=== PATIENT | female | born 1945 | race Caucasian/White ===

== ENCOUNTER 2022-12-25 11:20 | Emergency (ER) | payer MEDICARE, MEDICAID ==
[~2022-12-25] VITALS: Ht 160 cm; Wt 57.7 kg
[~2022-12-25 11:20] MED LIST: ATOR40TA72 PO; BUDE10.22 IH; CALC600T22 PO; CHOL100046 PO; GABA-530 PO; HYDR-3972 PO
[2022-12-25 11:22] VITALS: TEMP 98
[2022-12-25] MEDS ORDERED: normal saline 1000ML IV soln IV ONE (11:45)
[2022-12-25 11:50] LABS: BASOPHILS % (AUTO) 0.7 % (0-1); EOSINOPHILS % (AUTO) 1.1 % (0-6); HEMATOCRIT 31.8 % (35.0-45.0); HEMOGLOBIN 10.4 g/dl (12.0-16.0); LYMPHOCYTES # (AUTO) 0.7 X10'3 (1.1-4.8); LYMPHOCYTES % (AUTO) 18.3 % (21-51); MEAN CORPUSCULAR HGB CONC 32.6 g/dL (33.0-36.5); MEAN CORPUSCULAR VOLUME 91.8 FL (78-98); MEAN PLATELET VOLUME 7.9 FL (7.4-10.4); MONOCYTES # (AUTO) 0.4 X10'3 (0-0.9); MONOCYTES % (AUTO) 10.8 % (2-12); NEUTROPHILS # (AUTO) 2.7 X10'3 (1.8-7.7); NEUTROPHILS % (AUTO) 69.1 % (42-75); PLATELET COUNT 302 X10'3 (140-440); RED BLOOD COUNT 3.46 X10'6 (4.20-5.60); WHITE BLOOD COUNT 3.9 X10'3 (4.5-11.0)
[2022-12-25 12:02] LABS: ALANINE AMINOTRANSFERASE 58 U/L (12-78); ALBUMIN 3.4 G/DL (3.4-5.0); ALBUMIN/GLOBULIN RATIO 0.9 (1.1-1.5); ALKALINE PHOSPHATASE 164 IU/L (46-116); ANION GAP 9 (8-16); ASPARTATE AMINO TRANSFERASE 82 U/L (10-37); BILIRUBIN,TOTAL 0.6 MG/DL (0.1-1.0); BLOOD UREA NITROGEN 21 MG/DL (7-18); BUN/CREATININE RATIO 20.8 (10.0-20.0); CALCIUM 8.9 MG/DL (8.5-10.1); CHLORIDE 106 MMOL/L (99-107); CREATININE 1.01 MG/DL (0.40-0.90); GLUCOSE 109 MG/DL (70-104); LIPASE < 50 U/L (73-393); POTASSIUM 3.6 MMOL/L (3.5-5.1); SODIUM 140 MMOL/L (135-145); TOTAL CARBON DIOXIDE 24.9 MMOL/L (24-32); TOTAL PROTEIN 7.3 G/DL (6.4-8.2); eGFR 53 ML/MIN
[2022-12-25 12:11] LABS: CLARITY,URINE CLOUDY (Clear); COLOR,URINE YELLOW (Yellow); GLUCOSE, URINE NEGATIVE (Neg); KETONES,URINE NEGATIVE (Neg); LEUKOCYTE ESTERASE ,URINE TRACE (Neg); NITRITES, URINE POSITIVE (Neg); OCCULT BLOOD,URINE TRACE-INTACT (Neg); PROTEIN,URINE 30 mg/dl (Neg)
[2022-12-25 12:18] LABS: UA COLLECTION TYPE CLN CATCH MIDSTREAM
[2022-12-25 12:19] LABS: MUCUS STRANDS MANY /LPF (Neg); SQUAMOUS EPITHELIAL CELL,UR MANY /LPF (FEW)
[2022-12-25 12:21] LABS: BACTERIA,URINE 2+ /HPF (Neg); RBC,URINE 0-2 /HPF (0-2)
[2022-12-25 14:04] VITALS: BP 108/50; PULSE 79; RESP 16; O2SAT 100
[2022-12-25 14:27] LABS: OCCULT BLOOD STOOL POSITIVE (Neg)
== END 2022-12-25 15:34 | disposition home or self-care (01) ==
LOC: ER 11:21
DX: R11.2 Nausea with vomiting, unspecified (principal); R19.7 Diarrhea, unspecified; R10.84 Generalized abdominal pain; I11.0 Hypertensive heart disease with heart failure; E78.00 Pure hypercholesterolemia, unspecified; J44.9 Chronic obstructive pulmonary disease, unspecified; Z88.8 Allergy status to other drugs, medicaments and biological substances; Z79.899 Other long term (current) drug therapy; Z88.5 Allergy status to narcotic agent
CPT/HCPCS: 36415; 80053; 81001; 82272; 83605; 83690; 84145; 85025; 87040; 99285; J7030; 99283

== ENCOUNTER 2023-06-22 16:37 | Inpatient (IN) | payer MEDICARE, MEDICAID ==
[~2023-06-22] VITALS: Ht 167.6 cm; Wt 58.0 kg
[~2023-06-22 16:37] MED LIST changes: +PANT-47 PO
[2023-06-22] MEDS ORDERED: acetaminophen 325mg tablet PO STA (17:47)
[2023-06-22] MEDS ORDERED: normal saline 1000ML IV soln IVB ONE (17:50)
[2023-06-22] MEDS ORDERED: albumin (human) 25% 100ml IV 100 ML IV ONE (17:50)
[2023-06-22] MEDS ORDERED: pantoprazole 40 MG vial IV ONE (17:50)
[2023-06-22] MEDS ORDERED: piperacillin/tazo 3.375gm/50ml 50 ML IV ONE (17:50)
[2023-06-22] MEDS ORDERED: ipratropium 0.5 MG/2.5ML nebule IH ONE (17:50)
[2023-06-22] MEDS ORDERED: albuterol 2.5 MG/3 ML nebule CONTNEB PRN (17:50)
[2023-06-22 17:51] LABS: BASOPHILS # (AUTO) 0.1 X10'3 (0-0.2); BASOPHILS % (AUTO) 0.8 % (0-1); EOSINOPHILS # (AUTO) 0.1 X10'3 (0-0.9); EOSINOPHILS % (AUTO) 1.7 % (0-6); HEMATOCRIT 39.4 % (35.0-45.0); HEMOGLOBIN 13.1 g/dl (12.0-16.0); LYMPHOCYTES # (AUTO) 1.3 X10'3 (1.1-4.8); LYMPHOCYTES % (AUTO) 18.1 % (21-51); MEAN CORPUSCULAR HEMOGLOBIN 30.6 PG (27.0-31.0); MEAN CORPUSCULAR HGB CONC 33.4 g/dL (33.0-36.5); MEAN CORPUSCULAR VOLUME 91.6 FL (78-98); MEAN PLATELET VOLUME 8.8 FL (7.4-10.4); MONOCYTES # (AUTO) 0.7 X10'3 (0-0.9); MONOCYTES % (AUTO) 9.2 % (2-12); NEUTROPHILS # (AUTO) 5.2 X10'3 (1.8-7.7); NEUTROPHILS % (AUTO) 70.2 % (42-75); PLATELET COUNT 318 X10'3 (140-440); RED CELL DISTRIBUTION WIDTH 16.5 % (11.5-14.5); WHITE BLOOD COUNT 7.4 X10'3 (4.5-11.0)
[2023-06-22 18:01] LABS: APTT 28 SECONDS (22-32); PROTHROMBIN TIME 10.7 SECONDS (9.0-12.0)
[2023-06-22 18:03] LABS: ALANINE AMINOTRANSFERASE 18 U/L (12-78); ALBUMIN 3.7 G/DL (3.4-5.0); ALBUMIN/GLOBULIN RATIO 0.9 (1.1-1.5); ALKALINE PHOSPHATASE 129 IU/L (46-116); ANION GAP 8 (8-16); ASPARTATE AMINO TRANSFERASE 16 U/L (10-37); BILIRUBIN,TOTAL 0.7 MG/DL (0.1-1.0); BLOOD UREA NITROGEN 34 MG/DL (7-18); BUN/CREATININE RATIO 14.2 (10.0-20.0); CALCIUM 9.6 MG/DL (8.5-10.1); CHLORIDE 102 MMOL/L (99-107); GLUCOSE 124 MG/DL (70-104); POTASSIUM 4.3 MMOL/L (3.5-5.1); SODIUM 139 MMOL/L (135-145); TOTAL CARBON DIOXIDE 28.9 MMOL/L (24-32); TOTAL PROTEIN 7.7 G/DL (6.4-8.2); eCRCL 17 ML/MIN; eGFR 19 ML/MIN
[2023-06-22 18:10] LABS: MAGNESIUM 2.4 MG/DL (1.5-2.4); PRO BRAIN NATRIURETIC PEPTIDE 466 PG/ML (0-450)
[2023-06-22 18:29] LABS: C-REACTIVE PROTEIN 0.58 MG/DL (0.0-0.5)
[2023-06-22 19:31] VITALS: PULSE 70; RESP 20; O2SAT 95
[2023-06-22 19:32] LABS: ABG HCO3 23.8 mmol/L (22.0-26.0); ABG OXYGEN SATURATION 94.6 % (94-97); ABG PCO2 (T) 39.4 mmHg (32.0-45.0); ABG PH (T) 7.397 (7.350-7.450); ABG PO2 (T) 70.6 mmHg (75.0-100.0); ALLEN'S TEST POSITIVE; FCOHb 0.6 % (0.0-3.9); FHHb 5.4 % (0.0-5.0); FLOW 2 L/min; FMetHb 0.2 % (0.0-1.5); FO2Hb 93.8 % (94-97); MODE NASAL CANNULA; PATIENT TEMPERATURE 36.6; TOTAL HEMOGLOBIN 12.1 G/dl (12.0-16.0)
[2023-06-22] MEDS ORDERED: DOBUTamine-DoBUTrex 500mg/D5W 250 ML IV SCH (19:35)
[2023-06-22] MEDS ORDERED: normal saline 1000ML IV soln IV ONE (19:35)
[2023-06-22] MEDS ORDERED: methylPREDNISolone sod succ 125mg/2ml vial IV ONE (19:40)
[2023-06-22] MEDS ORDERED: albumin (human) 25% 100 ML IV solution IV ONE (19:40)
[2023-06-22] MEDS ORDERED: VANCOmycin 1250MG/NS 250ml Bag 250 ML IV ONE (19:45)
[2023-06-22 20:38] VITALS: PULSE 67; RESP 17; O2SAT 100
[2023-06-22] MEDS ORDERED: DOPamine 400mg/D5W 250ml 250 ML IV SCH ×2 (20:40→20:41)
[2023-06-22 21:44] LABS: BILIRUBIN,URINE NEGATIVE (Neg); CLARITY,URINE CLOUDY (Clear); COLOR,URINE YELLOW (Yellow); GLUCOSE, URINE >=1000 mg/dl (Neg); KETONES,URINE TRACE mg/dl (Neg); LEUKOCYTE ESTERASE ,URINE TRACE (Neg); NITRITES, URINE NEGATIVE (Neg); OCCULT BLOOD,URINE NEGATIVE (Neg); PH,URINE 5.5 (4.8-8.0); PROTEIN,URINE TRACE mg/dl (Neg); UROBILINOGEN,URINE 0.2 E.U/dL (0.2-1.0)
[2023-06-22 21:51] LABS: UA COLLECTION TYPE URINAL
[2023-06-22 21:52] LABS: RENAL CELLS, URINE FEW /HPF; SQUAMOUS EPITHELIAL CELL,UR MANY /LPF (FEW); TRANSITIONAL EPI CELLS,URINE FEW /HPF
[2023-06-22 21:53] LABS: BACTERIA,URINE 3+ /HPF (Neg); RBC,URINE NONE SEEN /HPF (0-2)
[2023-06-23] VITALS (11 sets, daily range): BP systolic 115–169; BP diastolic 54–74; PULSE 92–100; RESP 11–22; TEMP 97.4–98.9; O2SAT 93–96
[2023-06-23] MEDS ORDERED: mag hydrox/Alum hydrox/simeth 30ml oral suspension PO PRN (05:20)
[2023-06-23] MEDS ORDERED: acetaminophen 325mg tablet PO PRN ×2 (05:20)
[2023-06-23] MEDS ORDERED: ondansetron/PF 4mg/2ml inj IV PRN (05:20)
[2023-06-23] MEDS ORDERED: magnesium hydroxide 30ml (MOM) UD suspension PO PRN (05:20)
[2023-06-23] MEDS ORDERED: morphine 2 MG/ML inj. syringe IV PRN ×2 (05:20)
[2023-06-23] MEDS: normal saline 1000ml 1,000 ML IV SCH ×2 (07:32→15:20)
[2023-06-23] MEDS: docusate sod 100mg capsule PO SCH ×2 (07:33→20:04)
[2023-06-23] MEDS: heparin, porcine 5000 units/ml vial SQ SCH ×2 (07:33→20:12)
[2023-06-23] MEDS ORDERED: DAPA10TA PO (10:58)
[2023-06-23] MEDS ORDERED: SPIR25TA PO (11:02)
[2023-06-23] MEDS ORDERED: CARV25TA PO (11:02)
[2023-06-23] MEDS ORDERED: CALC625T PO (11:02)
[2023-06-23] MEDS ORDERED: SACU1TAB PO (11:02)
[2023-06-23] MEDS ORDERED: FERR-116 PO (11:02)
[2023-06-23] MEDS ORDERED: magnesium 2GM in 50ml NS 50 ML IV PRN (13:40)
[2023-06-23] MEDS ORDERED: magnesium 4gm in 100ml NS 100 ML IV PRN (13:40)
[2023-06-23] MEDS ORDERED: magnesium Cl slow-release 64mg tablet PO PRN (13:40)
[2023-06-23] MEDS ORDERED: potassium Cl 20 mEq SR tablet PO PRN ×2 (13:40)
[2023-06-23] MEDS ORDERED: potassium Cl 40MEQ/1/2NS 520ml 520 ML IV PRN (13:40)
[2023-06-23] MEDS ORDERED: PERFLUTREN PROTEIN-A MICROSPHR (Optison) 0.22 MG/ML 3ML VIAL IV ONE (13:40)
[2023-06-23] MEDS: piperacillin/tazo 3.375gm/50ml 50 ML IV SCH ×2 (14:09→16:00)
[2023-06-23] MEDS ORDERED: RIVA10TA PO (15:07)
[2023-06-23] MEDS ORDERED: methylPREDNISolone sod succ 125mg/2ml vial IV ONE (15:20)
[2023-06-23] MEDS: azithromycin 250mg tablet PO SCH (15:45)
[2023-06-23] MEDS: rivaroxaban 10mg tablet PO SCH (17:31)
[2023-06-23] MEDS: spironolactone 25 MG tablet PO SCH (17:31)
[2023-06-23] MEDS: K and/or MAG REPLACEMENT MC SCH (19:09)
[2023-06-23] MEDS: Budesonide/Formoterol Fumarate (Symbicort 80-4.5 Mcg Inhaler) IH SCH (20:00)
[2023-06-23] MEDS: gabapentin 100mg capsule PO SCH (20:03)
[2023-06-23] MEDS: carVEDilol 12.5mg tablet PO SCH (20:04)
[2023-06-23] MEDS: ipratropium/albuterol 3ml nebule NEB SCH ×2 (20:05→23:57)
[2023-06-23] MEDS: calcium carbonate 500mg tablet PO SCH (20:07)
[2023-06-23] MEDS: sacubitril/valsartan 24mg-26mg tablet PO SCH (20:12)
[2023-06-23] MEDS ORDERED: LORazepam 2 mg/ml vial IV ONE (22:55)
[2023-06-24] VITALS (15 sets, daily range): BP systolic 111–151; BP diastolic 58–71; PULSE 71–97; RESP 17–27; TEMP 97.5–98.2; O2SAT 91–98
[2023-06-24] MEDS: normal saline 1000ml 1,000 ML IV SCH ×2 (01:20→11:28)
[2023-06-24] MEDS ORDERED: LORazepam 2 mg/ml vial IV ONE (01:55)
[2023-06-24] MEDS: ipratropium/albuterol 3ml nebule NEB SCH ×6 (04:06→23:27)
[2023-06-24] MEDS: DAPAGLIFLOZIN 10MG TABLET PO SCH (08:00)
[2023-06-24] MEDS: Budesonide/Formoterol Fumarate (Symbicort 80-4.5 Mcg Inhaler) IH SCH ×2 (08:00→20:59)
[2023-06-24] MEDS: K and/or MAG REPLACEMENT MC SCH ×2 (08:00→20:00)
[2023-06-24 08:53] LABS: BASOPHILS % (AUTO) 0.1 % (0-1); EOSINOPHILS % (AUTO) 0 % (0-6); HEMATOCRIT 34.8 % (35.0-45.0); HEMOGLOBIN 11.4 g/dl (12.0-16.0); LYMPHOCYTES # (AUTO) 0.6 X10'3 (1.1-4.8); LYMPHOCYTES % (AUTO) 5.2 % (21-51); MEAN CORPUSCULAR HEMOGLOBIN 30.3 PG (27.0-31.0); MEAN CORPUSCULAR HGB CONC 32.7 g/dL (33.0-36.5); MEAN CORPUSCULAR VOLUME 92.8 FL (78-98); MEAN PLATELET VOLUME 8.9 FL (7.4-10.4); MONOCYTES # (AUTO) 0.4 X10'3 (0-0.9); MONOCYTES % (AUTO) 3.3 % (2-12); NEUTROPHILS # (AUTO) 10.9 X10'3 (1.8-7.7); NEUTROPHILS % (AUTO) 91.4 % (42-75); PLATELET COUNT 287 X10'3 (140-440); RED BLOOD COUNT 3.75 X10'6 (4.20-5.60); RED CELL DISTRIBUTION WIDTH 16.6 % (11.5-14.5); WHITE BLOOD COUNT 11.9 X10'3 (4.5-11.0)
[2023-06-24 09:19] LABS: ALBUMIN 3.6 G/DL (3.4-5.0); ANION GAP 15 (8-16); BLOOD UREA NITROGEN 27 MG/DL (7-18); BUN/CREATININE RATIO 28.1 (10.0-20.0); CALCIUM 9.7 MG/DL (8.5-10.1); CHLORIDE 108 MMOL/L (99-107); CREATININE 0.96 MG/DL (0.40-0.90); GLUCOSE 127 MG/DL (70-104); MAGNESIUM 2.1 MG/DL (1.5-2.4); PHOSPHORUS 2.1 MG/DL (2.3-4.5); POTASSIUM 3.8 MMOL/L (3.5-5.1); SODIUM 143 MMOL/L (135-145); TOTAL CARBON DIOXIDE 20.3 MMOL/L (24-32); eCRCL 43 ML/MIN; eGFR 56 ML/MIN
[2023-06-24] MEDS ORDERED: haloperidol lactate 5mg/ml inj IM ONE (09:50)
[2023-06-24] MEDS: piperacillin/tazo 3.375gm/50ml 50 ML IV SCH ×3 (11:06→16:14)
[2023-06-24] MEDS: gabapentin 100mg capsule PO SCH ×2 (11:10→20:58)
[2023-06-24] MEDS: carVEDilol 12.5mg tablet PO SCH ×2 (11:11→20:59)
[2023-06-24] MEDS: azithromycin 250mg tablet PO SCH (11:12)
[2023-06-24] MEDS: pantoprazole 40mg Tablet.DR PO SCH (11:13)
[2023-06-24] MEDS: atorvastatin 20mg tablet PO SCH (11:14)
[2023-06-24] MEDS: ferrous sulfate 325mg tablet PO SCH (11:14)
[2023-06-24] MEDS: calcium carbonate 500mg tablet PO SCH ×2 (11:14→20:59)
[2023-06-24] MEDS: docusate sod 100mg capsule PO SCH ×2 (11:16→20:58)
[2023-06-24] MEDS: methylPREDNISolone sod succ 125mg/2ml vial IV SCH ×2 (11:17)
[2023-06-24] MEDS: heparin, porcine 5000 units/ml vial SQ SCH (11:18)
[2023-06-24] MEDS: spironolactone 25 MG tablet PO SCH (11:26)
[2023-06-24] MEDS: sacubitril/valsartan 24mg-26mg tablet PO SCH ×2 (11:27→20:58)
[2023-06-24] MEDS: rivaroxaban 10mg tablet PO SCH (11:27)
[2023-06-24] MEDS ORDERED: methylPREDNISolone sod succ 125mg/2ml vial IV SCH (20:00)
[2023-06-25] VITALS (13 sets, daily range): BP systolic 127–154; BP diastolic 63–88; PULSE 66–90; RESP 16–21; TEMP 97.1–98.7; O2SAT 93–97
[2023-06-25] MEDS: piperacillin/tazo 3.375gm/50ml 50 ML IV SCH ×3 (00:56→16:00)
[2023-06-25] MEDS: ipratropium/albuterol 3ml nebule NEB SCH ×6 (02:55→23:17)
[2023-06-25] MEDS: normal saline 1000ml 1,000 ML IV SCH ×3 (07:20→18:06)
[2023-06-25] MEDS: K and/or MAG REPLACEMENT MC SCH ×2 (08:00→20:00)
[2023-06-25 08:23] LABS: BASOPHILS % (AUTO) 0.1 % (0-1); EOSINOPHILS % (AUTO) 0 % (0-6); HEMATOCRIT 37.1 % (35.0-45.0); HEMOGLOBIN 12.3 g/dl (12.0-16.0); LYMPHOCYTES # (AUTO) 0.5 X10'3 (1.1-4.8); MEAN CORPUSCULAR HEMOGLOBIN 30.3 PG (27.0-31.0); MEAN CORPUSCULAR HGB CONC 33.3 g/dL (33.0-36.5); MEAN CORPUSCULAR VOLUME 91.1 FL (78-98); MEAN PLATELET VOLUME 8.7 FL (7.4-10.4); MONOCYTES # (AUTO) 0.4 X10'3 (0-0.9); NEUTROPHILS # (AUTO) 8.3 X10'3 (1.8-7.7); NEUTROPHILS % (AUTO) 90.9 % (42-75); PLATELET COUNT 297 X10'3 (140-440); RED BLOOD COUNT 4.07 X10'6 (4.20-5.60); RED CELL DISTRIBUTION WIDTH 16.5 % (11.5-14.5); WHITE BLOOD COUNT 9.1 X10'3 (4.5-11.0)
[2023-06-25 08:59] LABS: ALBUMIN 3.1 G/DL (3.4-5.0); ANION GAP 18 (8-16); BLOOD UREA NITROGEN 25 MG/DL (7-18); BUN/CREATININE RATIO 26.3 (10.0-20.0); CALCIUM 9.2 MG/DL (8.5-10.1); CHLORIDE 108 MMOL/L (99-107); CREATININE 0.95 MG/DL (0.40-0.90); GLUCOSE 114 MG/DL (70-104); MAGNESIUM 1.9 MG/DL (1.5-2.4); PHOSPHORUS 3.2 MG/DL (2.3-4.5); POTASSIUM 3.7 MMOL/L (3.5-5.1); SODIUM 146 MMOL/L (135-145); TOTAL CARBON DIOXIDE 20.1 MMOL/L (24-32); eCRCL 43 ML/MIN; eGFR 57 ML/MIN
[2023-06-25] MEDS: Budesonide/Formoterol Fumarate (Symbicort 80-4.5 Mcg Inhaler) IH SCH ×2 (10:04→19:29)
[2023-06-25] MEDS: calcium carbonate 500mg tablet PO SCH ×2 (10:15→20:34)
[2023-06-25] MEDS: pantoprazole 40mg Tablet.DR PO SCH (10:15)
[2023-06-25] MEDS: DAPAGLIFLOZIN 10MG TABLET PO SCH (10:16)
[2023-06-25] MEDS: ferrous sulfate 325mg tablet PO SCH (10:16)
[2023-06-25] MEDS: spironolactone 25 MG tablet PO SCH (10:18)
[2023-06-25] MEDS: docusate sod 100mg capsule PO SCH ×2 (10:19→20:00)
[2023-06-25] MEDS: azithromycin 250mg tablet PO SCH (10:20)
[2023-06-25] MEDS: sacubitril/valsartan 24mg-26mg tablet PO SCH ×2 (10:20→20:37)
[2023-06-25] MEDS: gabapentin 100mg capsule PO SCH ×2 (10:21→20:34)
[2023-06-25] MEDS: atorvastatin 20mg tablet PO SCH (10:22)
[2023-06-25] MEDS: carVEDilol 12.5mg tablet PO SCH ×2 (10:22→20:34)
[2023-06-25] MEDS: rivaroxaban 10mg tablet PO SCH (10:23)
[2023-06-25] MEDS: methylPREDNISolone sod succ/PF 40mg inj. IV SCH ×2 (10:25→20:33)
[2023-06-25] MEDS: sodium chloride 0.45% 1,000 ML IV SCH (23:25)
[2023-06-26] VITALS (10 sets, daily range): BP systolic 128–162; BP diastolic 66–85; PULSE 64–76; RESP 15–18; TEMP 97.5–98.6; O2SAT 92–97
[2023-06-26] MEDS: piperacillin/tazo 3.375gm/50ml 50 ML IV SCH (00:30)
[2023-06-26] MEDS: ipratropium/albuterol 3ml nebule NEB SCH ×3 (03:22→11:30)
[2023-06-26 07:39] LABS: BASOPHILS % (AUTO) 0.3 % (0-1); EOSINOPHILS % (AUTO) 0 % (0-6); HEMATOCRIT 38.1 % (35.0-45.0); HEMOGLOBIN 12.8 g/dl (12.0-16.0); LYMPHOCYTES # (AUTO) 0.6 X10'3 (1.1-4.8); LYMPHOCYTES % (AUTO) 7.2 % (21-51); MEAN CORPUSCULAR HEMOGLOBIN 30.5 PG (27.0-31.0); MEAN CORPUSCULAR HGB CONC 33.5 g/dL (33.0-36.5); MEAN CORPUSCULAR VOLUME 91.1 FL (78-98); MEAN PLATELET VOLUME 8.5 FL (7.4-10.4); MONOCYTES # (AUTO) 0.5 X10'3 (0-0.9); MONOCYTES % (AUTO) 5.8 % (2-12); NEUTROPHILS # (AUTO) 7.2 X10'3 (1.8-7.7); NEUTROPHILS % (AUTO) 86.7 % (42-75); PLATELET COUNT 290 X10'3 (140-440); RED BLOOD COUNT 4.18 X10'6 (4.20-5.60); RED CELL DISTRIBUTION WIDTH 16.3 % (11.5-14.5); WHITE BLOOD COUNT 8.3 X10'3 (4.5-11.0)
[2023-06-26] MEDS: Budesonide/Formoterol Fumarate (Symbicort 80-4.5 Mcg Inhaler) IH SCH (07:48)
[2023-06-26 07:52] LABS: ALBUMIN 2.9 G/DL (3.4-5.0); ANION GAP 10 (8-16); BLOOD UREA NITROGEN 26 MG/DL (7-18); BUN/CREATININE RATIO 27.7 (10.0-20.0); CALCIUM 8.8 MG/DL (8.5-10.1); CHLORIDE 108 MMOL/L (99-107); CREATININE 0.94 MG/DL (0.40-0.90); GLUCOSE 126 MG/DL (70-104); MAGNESIUM 1.9 MG/DL (1.5-2.4); PHOSPHORUS 3.1 MG/DL (2.3-4.5); POTASSIUM 3.6 MMOL/L (3.5-5.1); SODIUM 141 MMOL/L (135-145); eCRCL 44 ML/MIN; eGFR 57 ML/MIN
[2023-06-26] MEDS: docusate sod 100mg capsule PO SCH (08:00)
[2023-06-26] MEDS: K and/or MAG REPLACEMENT MC SCH (08:00)
[2023-06-26] MEDS: gabapentin 100mg capsule PO SCH (09:24)
[2023-06-26] MEDS: DAPAGLIFLOZIN 10MG TABLET PO SCH (09:25)
[2023-06-26] MEDS: sacubitril/valsartan 24mg-26mg tablet PO SCH (09:25)
[2023-06-26] MEDS: calcium carbonate 500mg tablet PO SCH (09:26)
[2023-06-26] MEDS: ferrous sulfate 325mg tablet PO SCH (09:26)
[2023-06-26] MEDS: carVEDilol 12.5mg tablet PO SCH (09:27)
[2023-06-26] MEDS: atorvastatin 20mg tablet PO SCH (09:27)
[2023-06-26] MEDS: pantoprazole 40mg Tablet.DR PO SCH (09:28)
[2023-06-26] MEDS: rivaroxaban 10mg tablet PO SCH (09:28)
[2023-06-26] MEDS: spironolactone 25 MG tablet PO SCH (09:29)
[2023-06-26] MEDS: methylPREDNISolone sod succ/PF 40mg inj. IV SCH (09:29)
[2023-06-26] MEDS ORDERED: CEFD300C3 PO (12:21)
[2023-06-26] MEDS ORDERED: ALBU18HF2 IH (12:21)
[2023-06-26] MEDS ORDERED: PRED10TA23 PO (12:21)
[2023-06-26] MEDS: sodium chloride 0.45% 1,000 ML IV SCH (12:35)
== END 2023-06-26 14:25 | disposition home health service (06) | DRG 682 ==
LOC: ER 16:37 → ED HOLD 06-23 05:23 → PCU 3S 06-23 06:09
PROVIDERS: ADMIT Internal Medicine; ATTEND Family Medicine
DX: N17.0 Acute kidney failure with tubular necrosis (principal); G93.41 Metabolic encephalopathy; J96.21 Acute and chronic respiratory failure with hypoxia; I50.22 Chronic systolic (congestive) heart failure; J44.1 Chronic obstructive pulmonary disease with (acute) exacerbation; I13.0 Hypertensive heart and chronic kidney disease with heart failure and stage 1 through stage 4 chronic kidney disease, or unspecified chronic kidney disease; E86.0 Dehydration; F17.210 Nicotine dependence, cigarettes, uncomplicated; F03.90 Unspecified dementia, unspecified severity, without behavioral disturbance, psychotic disturbance, mood disturbance, and anxiety; R29.6 Repeated falls; Z20.822 Contact with and (suspected) exposure to COVID-19; N18.2 Chronic kidney disease, stage 2 (mild); D64.9 Anemia, unspecified; I48.91 Unspecified atrial fibrillation; Z80.0 Family history of malignant neoplasm of digestive organs; Z90.710 Acquired absence of both cervix and uterus; Z85.038 Personal history of other malignant neoplasm of large intestine; Z88.8 Allergy status to other drugs, medicaments and biological substances; D72.828 Other elevated white blood cell count
CPT/HCPCS: 36415; 36600; 70450; 71045; 74176; 80048; 80053; 81001; 82803; 83605; 83735; 83880; 84100; 84145; 84484; 85018; 85025; 85610; 85651; 85730; 86140; 87040; 87081; 87502; 87503; 87811; 93005; 93306; 94640; 94760; 97116; 97161; 97530; 99285; A7015; C1751; C1894; C9113; G0378; J1265; J1644; J2060; J2543; J2920; J2930; J3370; J3490; J7030; P9047

== ENCOUNTER 2023-07-19 19:02 | Inpatient (IN) | payer MEDICARE, MEDICAID ==
[~2023-07-19] VITALS: Ht 167.6 cm; Wt 59.0 kg
[~2023-07-19 19:02] MED LIST changes: +ALBU18HF2 IH; +CALC625T PO; +CARV25TA PO; +DAPA10TA PO; +FERR-116 PO; +NICO-687 TD; +RIVA10TA PO; +SACU1TAB PO; +SPIR25TA PO
[2023-07-19 20:16] LABS: BASOPHILS % (AUTO) 1.2 % (0-1); EOSINOPHILS # (AUTO) 0.1 X10'3 (0-0.9); LYMPHOCYTES # (AUTO) 0.8 X10'3 (1.1-4.8); MEAN PLATELET VOLUME 8.3 FL (7.4-10.4); MONOCYTES # (AUTO) 0.5 X10'3 (0-0.9); NEUTROPHILS # (AUTO) 1.6 X10'3 (1.8-7.7)
[2023-07-19 20:18] LABS: HEMATOCRIT 30.7 % (35.0-45.0); HEMOGLOBIN 10.3 g/dl (12.0-16.0); LYMPHOCYTES % (AUTO) 27.8 % (21-51); MEAN CORPUSCULAR HEMOGLOBIN 31.7 PG (27.0-31.0); MEAN CORPUSCULAR HGB CONC 33.6 g/dL (33.0-36.5); MEAN CORPUSCULAR VOLUME 94.2 FL (78-98); MONOCYTES % (AUTO) 15.3 % (2-12); NEUTROPHILS % (AUTO) 53.7 % (42-75); PLATELET COUNT 147 X10'3 (140-440); RED BLOOD COUNT 3.26 X10'6 (4.20-5.60); RED CELL DISTRIBUTION WIDTH 16.4 % (11.5-14.5)
[2023-07-19 20:24] LABS: ALANINE AMINOTRANSFERASE 15 U/L (12-78); ALBUMIN 2.6 G/DL (3.4-5.0); ALBUMIN/GLOBULIN RATIO 0.7 (1.1-1.5); ALKALINE PHOSPHATASE 76 IU/L (46-116); ANION GAP 11 (8-16); ASPARTATE AMINO TRANSFERASE 22 U/L (10-37); BILIRUBIN,TOTAL 0.6 MG/DL (0.1-1.0); BLOOD UREA NITROGEN 8 MG/DL (7-18); BUN/CREATININE RATIO 8.1 (10.0-20.0); CALCIUM 7.8 MG/DL (8.5-10.1); CHLORIDE 105 MMOL/L (99-107); CREATININE 0.99 MG/DL (0.40-0.90); GLUCOSE 110 MG/DL (70-104); SODIUM 141 MMOL/L (135-145); TOTAL CARBON DIOXIDE 25.1 MMOL/L (24-32); TOTAL PROTEIN 6.1 G/DL (6.4-8.2); eCRCL 42 ML/MIN; eGFR 54 ML/MIN
[2023-07-19 20:27] LABS: POTASSIUM 4.3 MMOL/L (3.5-5.1)
[2023-07-19] MEDS: normal saline 1000ML IV soln IVB ONE ×2 (21:10→23:44)
[2023-07-19] MEDS: albumin (human) 25% 100 ML IV solution IV ONE (23:43)
[2023-07-19 23:50] LABS: TOTAL CELLS COUNTED 100
[2023-07-19 23:51] LABS: ANISOCYTOSIS 1+; PLATELET ESTIMATE NORMAL
[2023-07-19 23:52] LABS: SMUDGE CELLS FEW
[2023-07-20] VITALS (7 sets, daily range): BP systolic 152; BP diastolic 64; PULSE 60–88; RESP 11–24; TEMP 97.6; O2SAT 94–98
[2023-07-20] MEDS ORDERED: mag hydrox/Alum hydrox/simeth 30ml oral suspension PO PRN (00:30)
[2023-07-20] MEDS ORDERED: diphenhydrAMINE 50 mg/ml inj IV PRN (00:30)
[2023-07-20] MEDS ORDERED: acetaminophen 650mg rectal suppository RC PRN (00:30)
[2023-07-20] MEDS ORDERED: ondansetron 4mg rapidly disintigrating tab PO PRN (00:30)
[2023-07-20] MEDS: normal saline 1000ml 1,000 ML IV SCH (00:30)
[2023-07-20] MEDS ORDERED: diphenhydrAMINE 25mg capsule PO PRN (00:30)
[2023-07-20] MEDS ORDERED: ondansetron/PF 4mg/2ml inj IV PRN (00:30)
[2023-07-20] MEDS ORDERED: acetaminophen 325mg tablet PO PRN ×2 (00:30)
[2023-07-20] MEDS ORDERED: magnesium hydroxide 30ml (MOM) UD suspension PO PRN (00:30)
[2023-07-20] MEDS ORDERED: bisacodyl 10mg suppository rectal RC PRN (00:30)
[2023-07-20] MEDS ORDERED: LIDOcaine 2% 10ml TOPICAL JELLY (Urojet) TP ONE (00:35)
[2023-07-20] MEDS ORDERED: LidoCAINE 2% Topical Jelly 11mL syringe TOP ONE (00:55)
[2023-07-20] MEDS: pantoprazole 40MG/NS 100ML BAG 100 ML IV SCH ×2 (01:43→09:02)
[2023-07-20] MEDS: LidoCAINE 2% Topical Jelly 11mL syringe TOP ONE (02:43)
[2023-07-20] MEDS: HYDROcodone/acetaminophen 5mg/325mg tablet PO PRN (03:11)
[2023-07-20 07:50] LABS: APTT 31 SECONDS (22-32); INR 1.1 INR; PROTHROMBIN TIME 12.1 SECONDS (9.0-12.0)
[2023-07-20] MEDS: CefTRIAXone/D5W-Rocephin 1gm 50 ML IV SCH (08:22)
[2023-07-20] MEDS: azithromycin/NS 500mg/250ml 250 ML IV SCH (08:23)
[2023-07-20] MEDS: methylPREDNISolone sod succ 125mg/2ml vial IV SCH (08:23)
[2023-07-20] MEDS: docusate sod 100mg capsule PO SCH (08:24)
[2023-07-20 08:34] LABS: MAGNESIUM 1.7 MG/DL (1.5-2.4); PHOSPHORUS 3.1 MG/DL (2.3-4.5); PRO BRAIN NATRIURETIC PEPTIDE 1167 PG/ML (0-450)
[2023-07-20] MEDS: hydrOXYzine 25 MG tablet PO ONE (12:36)
[2023-07-20] MEDS: benzonatate 100mg capsule PO ONE (12:37)
[2023-07-20] MEDS: ipratropium/albuterol 3ml nebule NEB SCH (16:32)
[2023-07-20] MEDS ORDERED: benzonatate 100mg capsule PO PRN (17:55)
[2023-07-20] MEDS: LORazepam 2 mg/ml vial IV ONE (19:14)
[2023-07-20] MEDS: temazepam 15mg capsule PO PRN (23:25)
[2023-07-21] VITALS (17 sets, daily range): BP systolic 116–150; BP diastolic 54–81; PULSE 76–97; RESP 16–27; TEMP 96.7–97.5; O2SAT 82–99
[2023-07-21 06:47] LABS: BASOPHILS % (AUTO) 0.4 % (0-1); EOSINOPHILS % (AUTO) 0 % (0-6); HEMOGLOBIN 10.2 g/dl (12.0-16.0); LYMPHOCYTES # (AUTO) 0.4 X10'3 (1.1-4.8); LYMPHOCYTES % (AUTO) 15.9 % (21-51); MEAN CORPUSCULAR HEMOGLOBIN 32.3 PG (27.0-31.0); MEAN CORPUSCULAR HGB CONC 34.1 g/dL (33.0-36.5); MEAN CORPUSCULAR VOLUME 94.7 FL (78-98); MEAN PLATELET VOLUME 8.2 FL (7.4-10.4); MONOCYTES # (AUTO) 0.1 X10'3 (0-0.9); MONOCYTES % (AUTO) 4.7 % (2-12); NEUTROPHILS # (AUTO) 2.2 X10'3 (1.8-7.7); PLATELET COUNT 137 X10'3 (140-440); RED BLOOD COUNT 3.16 X10'6 (4.20-5.60); RED CELL DISTRIBUTION WIDTH 16.2 % (11.5-14.5); WHITE BLOOD COUNT 2.7 X10'3 (4.5-11.0)
[2023-07-21 07:26] LABS: ALANINE AMINOTRANSFERASE 11 U/L (12-78); ALBUMIN 2.5 G/DL (3.4-5.0); ALBUMIN/GLOBULIN RATIO 0.8 (1.1-1.5); ALKALINE PHOSPHATASE 74 IU/L (46-116); ANION GAP 17 (8-16); ASPARTATE AMINO TRANSFERASE 15 U/L (10-37); BILIRUBIN,TOTAL 0.5 MG/DL (0.1-1.0); BLOOD UREA NITROGEN 7 MG/DL (7-18); BUN/CREATININE RATIO 10.6 (10.0-20.0); CALCIUM 7.5 MG/DL (8.5-10.1); CHLORIDE 113 MMOL/L (99-107); CREATININE 0.66 MG/DL (0.40-0.90); GLUCOSE 109 MG/DL (70-104); POTASSIUM 3.7 MMOL/L (3.5-5.1); SODIUM 148 MMOL/L (135-145); TOTAL CARBON DIOXIDE 18.3 MMOL/L (24-32); TOTAL PROTEIN 5.8 G/DL (6.4-8.2); eCRCL 63 ML/MIN; eGFR 86 ML/MIN
[2023-07-21 07:49] LABS: ANISOCYTOSIS 1+; PLATELET ESTIMATE DECREASED; TOTAL CELLS COUNTED 100
[2023-07-21] MEDS: hydrOXYzine 25 MG tablet PO PRN (08:45)
[2023-07-21] MEDS: morphine 2 MG/ML inj. syringe IV PRN (12:35)
[2023-07-21] MEDS: budesonide 0.5mg/2ml UD nebule IH SCH (19:54)
[2023-07-21] MEDS: albuterol 2.5 MG/3 ML nebule NEB SCH (19:54)
[2023-07-21] MEDS: metroNIDAZOLE-Flagyl 500mg/NS 100 ML IV SCH (22:03)
[2023-07-21] MEDS: guaiFENesin ER 600mg tablet PO SCH (22:08)
[2023-07-21] MEDS: pantoprazole 40mg Tablet.DR PO SCH (22:08)
[2023-07-21] MEDS: carVEDilol 12.5mg tablet PO SCH (22:09)
[2023-07-21] MEDS: sacubitril/valsartan 24mg-26mg tablet PO SCH (22:09)
[2023-07-22] VITALS (20 sets, daily range): BP systolic 99–149; BP diastolic 42–65; PULSE 73–118; RESP 18–29; TEMP 97–98.3; O2SAT 90–97
[2023-07-22] MEDS: ipratropium/albuterol 3ml nebule NEB PRN (05:51)
[2023-07-22] MEDS: rivaroxaban 10mg tablet PO SCH (08:00)
[2023-07-22] MEDS: atorvastatin 20mg tablet PO SCH (08:15)
[2023-07-22] MEDS: spironolactone 25 MG tablet PO SCH (08:16)
[2023-07-22 11:55] LABS: BASOPHILS % (AUTO) 0.2 % (0-1); EOSINOPHILS % (AUTO) 0.1 % (0-6); HEMATOCRIT 29.9 % (35.0-45.0); LYMPHOCYTES # (AUTO) 0.4 X10'3 (1.1-4.8); LYMPHOCYTES % (AUTO) 9.6 % (21-51); MEAN CORPUSCULAR HEMOGLOBIN 31.8 PG (27.0-31.0); MEAN CORPUSCULAR HGB CONC 33.5 g/dL (33.0-36.5); MEAN CORPUSCULAR VOLUME 94.8 FL (78-98); MEAN PLATELET VOLUME 7.9 FL (7.4-10.4); MONOCYTES # (AUTO) 0.2 X10'3 (0-0.9); MONOCYTES % (AUTO) 5.2 % (2-12); NEUTROPHILS # (AUTO) 3.7 X10'3 (1.8-7.7); NEUTROPHILS % (AUTO) 84.9 % (42-75); PLATELET COUNT 158 X10'3 (140-440); RED BLOOD COUNT 3.16 X10'6 (4.20-5.60); RED CELL DISTRIBUTION WIDTH 16.5 % (11.5-14.5); WHITE BLOOD COUNT 4.3 X10'3 (4.5-11.0)
[2023-07-22] MEDS ORDERED: ipratropium/albuterol 3ml nebule NEB SCH (12:00)
[2023-07-22 12:08] LABS: ALANINE AMINOTRANSFERASE 15 U/L (12-78); ALBUMIN 2.8 G/DL (3.4-5.0); ALBUMIN/GLOBULIN RATIO 0.8 (1.1-1.5); ALKALINE PHOSPHATASE 73 IU/L (46-116); ANION GAP 12 (8-16); ASPARTATE AMINO TRANSFERASE 12 U/L (10-37); BILIRUBIN,TOTAL 0.5 MG/DL (0.1-1.0); BLOOD UREA NITROGEN 10 MG/DL (7-18); BUN/CREATININE RATIO 11.1 (10.0-20.0); CALCIUM 8.4 MG/DL (8.5-10.1); CHLORIDE 112 MMOL/L (99-107); GLUCOSE 107 MG/DL (70-104); POTASSIUM 3.4 MMOL/L (3.5-5.1); SODIUM 148 MMOL/L (135-145); TOTAL CARBON DIOXIDE 24.3 MMOL/L (24-32); TOTAL PROTEIN 6.2 G/DL (6.4-8.2); eCRCL 46 ML/MIN; eGFR 60 ML/MIN
[2023-07-22] MEDS: methylPREDNISolone sod succ/PF 40mg inj. IV SCH (12:16)
[2023-07-22] MEDS: LORazepam 1 MG tablet PO PRN (13:38)
[2023-07-22] MEDS: ipratropium/albuterol 3ml nebule NEB SCH (14:42)
[2023-07-22] MEDS ORDERED: potassium Cl 20 mEq SR tablet PO PRN (19:35)
[2023-07-22] MEDS ORDERED: potassium Cl 40MEQ/1/2NS 520ml 520 ML IV PRN (19:35)
[2023-07-22] MEDS ORDERED: magnesium 2GM in 50ml NS 50 ML IV PRN (19:35)
[2023-07-22] MEDS ORDERED: magnesium Cl slow-release 64mg tablet PO PRN (19:35)
[2023-07-22] MEDS ORDERED: magnesium 4gm in 100ml NS 100 ML IV PRN (19:35)
[2023-07-22] MEDS: metoprolol tartrate 1mg/ml inj IV SCH (19:54)
[2023-07-22] MEDS: potassium Cl 20 mEq SR tablet PO PRN (20:00)
[2023-07-22] MEDS: K and/or MAG REPLACEMENT MC SCH (20:08)
[2023-07-23] VITALS (15 sets, daily range): BP systolic 95–133; BP diastolic 55–78; PULSE 70–124; RESP 12–26; TEMP 97–97.8; O2SAT 90–97
[2023-07-23 06:28] LABS: BASOPHILS % (AUTO) 0.2 % (0-1); EOSINOPHILS % (AUTO) 0 % (0-6); HEMATOCRIT 27.8 % (35.0-45.0); HEMOGLOBIN 9.5 g/dl (12.0-16.0); LYMPHOCYTES # (AUTO) 0.4 X10'3 (1.1-4.8); LYMPHOCYTES % (AUTO) 7.8 % (21-51); MEAN CORPUSCULAR HEMOGLOBIN 31.9 PG (27.0-31.0); MEAN CORPUSCULAR HGB CONC 34.2 g/dL (33.0-36.5); MEAN CORPUSCULAR VOLUME 93.4 FL (78-98); MEAN PLATELET VOLUME 8.1 FL (7.4-10.4); MONOCYTES # (AUTO) 0.3 X10'3 (0-0.9); MONOCYTES % (AUTO) 6.5 % (2-12); NEUTROPHILS # (AUTO) 3.8 X10'3 (1.8-7.7); NEUTROPHILS % (AUTO) 85.5 % (42-75); PLATELET COUNT 161 X10'3 (140-440); RED BLOOD COUNT 2.98 X10'6 (4.20-5.60); RED CELL DISTRIBUTION WIDTH 16.5 % (11.5-14.5); WHITE BLOOD COUNT 4.5 X10'3 (4.5-11.0)
[2023-07-23 06:41] LABS: ALANINE AMINOTRANSFERASE 13 U/L (12-78); ALBUMIN 2.4 G/DL (3.4-5.0); ALBUMIN/GLOBULIN RATIO 0.8 (1.1-1.5); ALKALINE PHOSPHATASE 65 IU/L (46-116); ANION GAP 11 (8-16); ASPARTATE AMINO TRANSFERASE 17 U/L (10-37); BILIRUBIN,TOTAL 0.4 MG/DL (0.1-1.0); BLOOD UREA NITROGEN 14 MG/DL (7-18); BUN/CREATININE RATIO 15.4 (10.0-20.0); CALCIUM 8.2 MG/DL (8.5-10.1); CHLORIDE 114 MMOL/L (99-107); CREATININE 0.91 MG/DL (0.40-0.90); GLUCOSE 128 MG/DL (70-104); POTASSIUM 3.8 MMOL/L (3.5-5.1); SODIUM 149 MMOL/L (135-145); TOTAL CARBON DIOXIDE 23.7 MMOL/L (24-32); TOTAL PROTEIN 5.6 G/DL (6.4-8.2); eCRCL 46 ML/MIN; eGFR 59 ML/MIN
[2023-07-23 08:51] LABS: MAGNESIUM 1.8 MG/DL (1.5-2.4)
[2023-07-23 12:39] LABS: OCCULT BLOOD STOOL NEGATIVE (Neg)
[2023-07-23] MEDS: digoxin 250mcg/ml 2ml ampule IV ONE ×2 (13:05→19:50)
[2023-07-23] MEDS ORDERED: iohexol 350MG/ML 100ml bottle IV ONE (16:44)
[2023-07-23] MEDS: apixaban 5mg tablet PO SCH (19:46)
[2023-07-24] VITALS (8 sets, daily range): BP systolic 138–162; BP diastolic 58–78; PULSE 84–106; RESP 14–22; TEMP 97–98.2; O2SAT 88–93
[2023-07-24] MEDS: digoxin 250mcg/ml 2ml ampule IV ONE (02:06)
[2023-07-24 06:08] LABS: BASOPHILS % (AUTO) 0 % (0-1); EOSINOPHILS % (AUTO) 0 % (0-6); HEMATOCRIT 29.3 % (35.0-45.0); HEMOGLOBIN 9.9 g/dl (12.0-16.0); LYMPHOCYTES # (AUTO) 0.4 X10'3 (1.1-4.8); LYMPHOCYTES % (AUTO) 6.2 % (21-51); MEAN CORPUSCULAR HEMOGLOBIN 31.4 PG (27.0-31.0); MEAN CORPUSCULAR HGB CONC 33.6 g/dL (33.0-36.5); MEAN CORPUSCULAR VOLUME 93.5 FL (78-98); MEAN PLATELET VOLUME 8.2 FL (7.4-10.4); MONOCYTES # (AUTO) 0.4 X10'3 (0-0.9); NEUTROPHILS # (AUTO) 5.7 X10'3 (1.8-7.7); NEUTROPHILS % (AUTO) 87.8 % (42-75); PLATELET COUNT 222 X10'3 (140-440); RED BLOOD COUNT 3.14 X10'6 (4.20-5.60); WHITE BLOOD COUNT 6.4 X10'3 (4.5-11.0)
[2023-07-24 06:51] LABS: ALANINE AMINOTRANSFERASE 12 U/L (12-78); ALBUMIN 2.3 G/DL (3.4-5.0); ALBUMIN/GLOBULIN RATIO 0.7 (1.1-1.5); ALKALINE PHOSPHATASE 67 IU/L (46-116); ANION GAP 11 (8-16); ASPARTATE AMINO TRANSFERASE 19 U/L (10-37); BILIRUBIN,TOTAL 0.4 MG/DL (0.1-1.0); BLOOD UREA NITROGEN 16 MG/DL (7-18); BUN/CREATININE RATIO 23.9 (10.0-20.0); CHLORIDE 112 MMOL/L (99-107); CREATININE 0.67 MG/DL (0.40-0.90); GLUCOSE 133 MG/DL (70-104); SODIUM 145 MMOL/L (135-145); TOTAL CARBON DIOXIDE 21.9 MMOL/L (24-32); TOTAL PROTEIN 5.6 G/DL (6.4-8.2); eCRCL 62 ML/MIN; eGFR 85 ML/MIN
[2023-07-24 06:58] LABS: DIGOXIN 2.3 NG/ML (0.9-1.9); POTASSIUM 3.5 MMOL/L (3.5-5.1)
[2023-07-25] MEDS ORDERED: LACT1CAP86 PO (11:47)
[2023-07-25] MEDS ORDERED: DOCU100C40 PO (11:47)
[2023-07-25] MEDS ORDERED: DIGO125T PO (11:47)
[2023-07-25] MEDS ORDERED: CEFD300C3 PO (11:47)
[2023-07-25] MEDS ORDERED: APIX5TAB3 PO ×2 (12:11)
[2023-07-25] MEDS ORDERED: SACU1TAB PO (12:11)
[2023-07-30] MEDS ORDERED: apixaban 5mg tablet PO SCH (20:00)
== END 2023-07-24 13:20 | DRG 391 ==
LOC: ER 19:03 → ED HOLD 07-20 00:32 → PCU 3S 07-20 21:00
PROVIDERS: ADMIT Family Medicine; ATTEND Family Medicine
PROC: B32T1ZZ Computerized Tomography (CT Scan) of Left Pulmonary Artery using Low Osmolar Contrast (ICD-10-PCS; principal; 2023-07-23)
PROC: B3201ZZ Computerized Tomography (CT Scan) of Thoracic Aorta using Low Osmolar Contrast (ICD-10-PCS; 2023-07-23)
PROC: B32S1ZZ Computerized Tomography (CT Scan) of Right Pulmonary Artery using Low Osmolar Contrast (ICD-10-PCS; 2023-07-23)
DX: A09 Infectious gastroenteritis and colitis, unspecified (principal); I26.99 Other pulmonary embolism without acute cor pulmonale; J44.1 Chronic obstructive pulmonary disease with (acute) exacerbation; N17.9 Acute kidney failure, unspecified; I50.30 Unspecified diastolic (congestive) heart failure; K52.89 Other specified noninfective gastroenteritis and colitis; E86.1 Hypovolemia; K21.9 Gastro-esophageal reflux disease without esophagitis; G62.9 Polyneuropathy, unspecified; N18.9 Chronic kidney disease, unspecified; G89.4 Chronic pain syndrome; I48.91 Unspecified atrial fibrillation; F17.210 Nicotine dependence, cigarettes, uncomplicated; E78.00 Pure hypercholesterolemia, unspecified; R32 Unspecified urinary incontinence; E88.09 Other disorders of plasma-protein metabolism, not elsewhere classified; I95.9 Hypotension, unspecified; F41.9 Anxiety disorder, unspecified; D72.819 Decreased white blood cell count, unspecified; D50.0 Iron deficiency anemia secondary to blood loss (chronic); Z80.0 Family history of malignant neoplasm of digestive organs; Z82.0 Family history of epilepsy and other diseases of the nervous system; Z79.01 Long term (current) use of anticoagulants; Z88.5 Allergy status to narcotic agent; Z88.8 Allergy status to other drugs, medicaments and biological substances; Z88.4 Allergy status to anesthetic agent; Z79.899 Other long term (current) drug therapy; Z86.718 Personal history of other venous thrombosis and embolism
CPT/HCPCS: 36415; 71045; 71275; 74176; 80053; 80162; 82272; 83605; 83735; 83880; 84100; 84145; 84484; 85007; 85025; 85379; 85610; 85730; 86885; 86900; 86901; 87040; 87081; 93005; 93970; 94640; 94760; 97110; 97161; 97530; 97535; 99285; A4314; A4620; A6213; A6250; C9113; G0378; J0456; J0696; J1160; J2060; J2270; J2920; J2930; J3490; J7030; J7040; P9047; Q0177; Q9967